=== PATIENT | female | born 1955 | race Caucasian/White ===

== ENCOUNTER → 2017-06-25 | Outpatient (CLI) | payer OTHER ==
[~2017-06-25] MED LIST: GLUCOSAMINE HC500 MG PO; MACROBID 100 M100 M2 PO; OSTERA TABLET1 EAC1 PO; SM NATURAL BAL100 MG PO; TUMS PO
== END ==
LOC: M.RAD 08:52
DX: M85.88 Other specified disorders of bone density and structure, other site (principal)

== ENCOUNTER → 2017-11-20 | Outpatient (CLI) | payer OTHER | LOC: M.RAD 09:00 | DX: Z12.31 Encounter for screening mammogram for malignant neoplasm of breast (principal) ==

== ENCOUNTER → 2018-04-22 | Outpatient (CLI) | payer OTHER ==
--- NOTE | 2018-04-22 12:51 | 2DMMODE ---
[place] [address] 2 D/M-MODE ECHOCARDIOGRAM Name: SRAVANIALICECHIORICCO Room: [facility]#: [id number] Admission: 04/22/18 Attend Phys: Tosin Kowalski Discharge: Date of : 53 Date of Service: 04/22/18 1250 Report #: [id number] THIS REPORT FOR: //name// APPROVED REPORT Study performed: 04/22/2018 10:39:34 EXAM: Comprehensive 2D, Doppler, and color-flow Echocardiogram Patient Location: Out-Patient Status: routine BSA: 1.57 HR: 62 bpm BP: 142/70 mmHg Other Information Study Quality: Good Indications Palpitations Chest Pain 2D Dimensions IVSd: 9.28 (7-11mm) LVOT Diam: 20.08 (18-24mm) LVDd: 41.57 mm PWd: 9.02 (7-11mm) Ascending Ao: 23.55 (22-36mm) LVDs: 27.91 (25-40mm) Aortic Root: 20.08 mm Volumes Left Atrial Volume (Systole) LA ESV Index: 19.70 mL/m2 Aortic Valve AoV Peak Cordell.: 1.23 m/s AO Peak Gr.: 6.02 mmHg LVOT Max P.96 mmHg AO Mean Gr.: 2.75 mmHg LVOT Mean P.81 mmHg LVOT Max V: 0.99 m/s AO V2 VTI: 23.76 cm LVOT Mean V: 0.62 m/s PEYTON (VTI): 2.88 cm2 LVOT V1 VTI: 21.63 cm Mitral Valve E/A Ratio: 1.10 MV Decel. Time: 180.26 ms MV E Max Cordell.: 0.76 m/[place] [address] 2 D/M-MODE ECHOCARDIOGRAM Name: RICCO MAURO Room: [facility]#: [id number] Admission: 04/22/18 Attend Phys: Tosin Kowalski Discharge: Date of : 53 Date of Service: 04/22/18 1250 Report #: [id number] MV PHT: 52.28 ms MVA (PHT): 4.21 cm2 TDI E/Lateral E': 6.91 E/Medial E': 8.44 Medial E' Cordell.: 0.09 m/s Lateral E' Cordell.: 0.11 m/s Pulmonary Valve PV Peak Cordell.: 0.88 m/s PV Peak Gr.: 3.10 mmHg Tricuspid Valve RAP Estimate: 5.00 mmHg TR Peak Gr.: 21.77 mmHg RVSP: 26.77 mmHg PA Pressure: 26.77 mmHg Left Ventricle The left ventricle is normal size. There is normal LV segmental wall motion. There is normal left ventricular wall thickness. Left ventricular systolic function is normal. The left ventricular ejection fraction is within the normal range. LVEF is 55-60%. The left ventricular diastolic function is normal. Right Ventricle The right ventricle is normal size. The right ventricular systolic function is normal. Atria The left atrium size is normal. The right atrium size is normal. Aortic Valve Mild aortic valve sclerosis. Mild aortic regurgitation. There is no aortic valvular stenosis. Mitral Valve The mitral valve is normal in structure. Mild mitral regurgitation. No evidence of mitral valve stenosis. Tricuspid Valve The tricuspid valve is normal in structure. Mild tricuspid regurgitation. Pulmonic Valve The pulmonary valve is normal in structure. There is no pulmonic [place] [address] 2 D/M-MODE ECHOCARDIOGRAM Name: RICCO MAURO Room: [facility]#: [id number] Admission: 04/22/18 Attend Phys: Tosin Kowalski Discharge: Date of : 53 Date of Service: 04/22/18 1250 Report #: [id number] Great Vessels The aortic root is normal in size. IVC is normal in size and collapses >50% with inspiration. Pericardium There is no pericardial effusion. <Conclusion> The left ventricle is normal size. There is normal left ventricular wall thickness. Left ventricular systolic function is normal. The left ventricular ejection fraction is within the normal range. LVEF is 55-60%. The left ventricular diastolic function is normal. The right ventricle is normal size. The left atrium size is normal. Mild aortic valve sclerosis. Mild aortic regurgitation. There is no aortic valvular stenosis. The mitral valve is normal in structure. The tricuspid valve is normal in structure. Mild tricuspid regurgitation. IVC is normal in size and collapses >50% with inspiration. There is no pericardial effusion. There is normal LV segmental wall motion. <ELECTRONICALLY SIGNED> By: Drake Samuels MD, FACC 04/22/18 1250 1250 1250 Drake Samuels MD, FACC /INF
--- NOTE | 2018-04-22 12:58 | EXE ---
[place] [address] STRESS ECHOCARDIOGRAM Name: ZUNILDARICCO Room: [facility]#: [id number] Admission: 04/22/18 Attend Phys: Tosin Kowalski Discharge: Date of : 53 Date of Service: 04/22/18 1258 Report #: [id number] THIS REPORT FOR: //name// APPROVED REPORT Study performed: 04/22/2018 11:32:47 Exam: Stress Echocardiogram Indication: Chest pain , Palpitations Patient Location: Out-Patient Stress Nurse: Deepali Thomas RN Supervising Physician: Drake Samuels MD Ht: 5 ft 0 in HR: 58 bpm BP: 142/76 mmHg Medical History Cardiac Risk Factors: FHX of CAD Procedure The patient underwent an Exercise Stress Test using the Petar Protocol. Blood pressure, heart rate, and EKG were monitored. An Echocardiogram was performed by pharmacy laboratory technician in four stages in quad fashion. At peak stress, four selected images were obtained and placed side by side with resting images for comparison. Stress Test Details Stress Test: Exercise stress testing was performed using a Petar protocol. HR Resting HR: 58 bpm Max Heart Rate (APMHR): 156 bpm Max HR Achieved: 160 bpm Target HR (85% APMHR): 132 bpm % of APMHR: 102 Recovery HR: 90 bpm HR response to stress: Normal HR response to stress BP Resting BP: 142/76 mmHg Max BP: 215/82 mmHg Recovery BP: 150/78 mmHg BP response to stress: Normal blood pressure response to stress. ECG Resting ECG: Normal EKG Stress EC/2 mm of slightly upsloping [place] [address] STRESS ECHOCARDIOGRAM Name: RICCO MAURO Room: [facility]#: [id number] Admission: 04/22/18 Attend Phys: Tosin Kowalski Discharge: Date of : 53 Date of Service: 04/22/18 1258 Report #: [id number] Clinical Reason for Termination: Completed protocol Exercise duration: 9 min 25 sec Highest Stage Achieved: Stage 4: 4.2 mph at 16% grade. Exercise capacity: 10.84 METs Pre-Stress Echo The resting Echocardiogram showed normal left ventricular contractility with an estimated Ejection Fraction of about 55-60%. Normal wall motion in all segments on baseline images. Post-Stress Echo The stress Echocardiogram showed normal left ventricular contractility with an estimated Ejection Fraction of about >70%. Normal augmentation of wall motion in all segments on post stress images. Conclusion Clinical Response: Non-ischemic Exercise Capacity: Average Stress ECG Response: Indeterminant Stress Echo Images: Non-ischemic Other Information Study Quality: Good <ELECTRONICALLY SIGNED> By: Drake Samuels MD, [facility] 04/22/18 1258 1258 1258 Drake Samuels MD, [facility] /INF
== END ==
LOC: M.CRD 04-05 12:08
DX: I08.3 Combined rheumatic disorders of mitral, aortic and tricuspid valves (principal); I47.1 Supraventricular tachycardia

== ENCOUNTER → 2018-11-25 | Outpatient (CLI) | payer OTHER | LOC: M.RAD 08:35 | DX: Z12.31 Encounter for screening mammogram for malignant neoplasm of breast (principal) ==

== ENCOUNTER → 2019-11-27 | Outpatient (CLI) | payer MEDICARE, OTHER | LOC: M.RAD 11-17 10:13 | PROVIDERS: ATTEND Family Medicine | DX: Z12.31 Encounter for screening mammogram for malignant neoplasm of breast (principal); Z13.820 Encounter for screening for osteoporosis; Z78.0 Asymptomatic menopausal state ==

== ENCOUNTER → 2020-11-29 | Outpatient (CLI) | payer MEDICARE, OTHER | LOC: M.RAD 08:50 | PROVIDERS: ATTEND Family Medicine | DX: Z12.31 Encounter for screening mammogram for malignant neoplasm of breast (principal) ==